=== PATIENT | female | born 1995 | race Caucasian/White ===

== ENCOUNTER 2017-01-19 10:26 | Emergency (ER) | payer BC ==
[~2017-01-19] VITALS: Wt 78.6 kg
[2017-01-19] MEDS ORDERED: HC30CR25 TOP (12:35)
--- NOTE | 2017-01-19 12:38 | ERD ---
ER Documentation Chief Complaint Chief Complaint l. eye pain, 15 wks preg HPI This 21-year-old female presents with a rash around her left upper eyelid spreading to her lower eyelid over the last 1-2 weeks. She is using antifungals at home without relief. She is 15 weeks . She denies any previous rashes or eczema. She has any visual changes is up some temporary blurriness in the morning which resolves. She denies any discharge, or pain or symptoms of the actual eye. Her symptoms are isolated to her upper eyelid and the skin near her nose in the medial orbital area. ROS All systems reviewed and are negative except as per history of present illness. Medications Home Meds Active Scripts Hydrocortisone* Topical (Hydrocortisone* Topical) 2.5%-28.3 Gm Cream..g., 1 APPLIC TOP TID for 10 Days, #1 TUB Prov:SHARI CASTRO MD 01/19/17 Physical Exam Vitals Vital Signs Date Time Temp Pulse Resp B/P Pulse Ox O2 Delivery O2 Flow Rate FiO2 01/19/17 11:09 98.0 99 20 107/63 98 Physical Exam Const: [] Alert, [id number]. Head: Atraumatic Eyes: Normal Conjunctiva. There is some flakiness and irritation on the left upper lid and the lateral nasal bridge area and inferior lid. The sclera is normal and eyes are PERRLA and extraocular movements intact. ENT: Normal External Ears, Nose and Mouth. Neck: Full range of motion..~ No meningismus. Resp: Clear to auscultation bilaterally Cardio: Regular rate and rhythm, no murmurs Abd: Soft, non tender, non distended. Normal bowel sounds Skin: No petechiae or rashes Back: No midline or flank tenderness Ext: No cyanosis, or edema Neur: Awake and alert Psych: Normal Mood and Affect Procedures/MDM Patient presents with a negative manic appearing dermatitis of the left eyelids. There is no appreciable involvement of the globe no visual complaints. There is no evidence of orbital cellulitis, symptoms to suggest ulcerations, dendritic lesions, threats to vision, bacterial infection. She will treated with hydrocortisone and further observation at home and return precautions and primary care follow-up. The patient was stable with no new complaints during the ER course. Clinically, there is no current evidence to suggest meningitis, sepsis, acute abdomen, pneumonia, acute coronary syndrome, pulmonary embolism, or any other emergent condition appearing to require further evaluation or hospitalization. The patient should certainly return for any new or worsening symptoms per the aftercare instructions. They should otherwise follow-up with her primary care doctor for reevaluation this week. Departure Diagnosis: Primary Impression: Dermatitis Condition: Stable Patient Instructions: Dermatitis, Non-Specific Additional Instructions: Okay to continue antifungal cream. Recheck for redness, fevers, visual changes , new or worsening symptoms or primary care doctor. SHARI CASTRO MD Jan 19, 2017 12:38
== END 2017-01-19 12:51 | disposition home or self-care (01) ==
LOC: FTE 10:26
DX: L30.9 Dermatitis, unspecified (principal)
CPT/HCPCS: 99283

== ENCOUNTER 2017-02-04 22:53 | Emergency (ER) | END 2017-02-05 01:56 | disposition home or self-care (01) ==

== ENCOUNTER 2017-04-24 19:56 | Outpatient (CLI) | END 2017-04-24 23:30 | disposition home or self-care (01) ==

== ENCOUNTER 2017-07-02 15:28 | Outpatient (CLI) | END 2017-07-02 16:59 | disposition home or self-care (01) ==

== ENCOUNTER 2017-07-11 06:45 | Inpatient (IN) | END 2017-07-15 15:40 | disposition home or self-care (01) | DRG 775 ==